=== PATIENT | female | born 1970 | race Two or more races ===

== ENCOUNTER → 2025-05-19 | Outpatient (CLI) | payer BC, SELFPAY ==
[2025-05-19 15:51] LABS: RA Screen Negative (Negative)
[2025-05-25 22:05] LABS: Cardiolipin Ab (IgA) 2.8 APL-U/mL; Cardiolipin Ab (IgG) <2.0 GPL-U/mL; Sjogren's antibody (SS-A) <1.0 NEG AI (<1.0 NEGATIVE); Sm Antibody <1.0 NEG AI (<1.0 NEGATIVE)
[2025-05-26 06:26] LABS: ANA Screen, IFA POSITIVE (NEGATIVE); ANA Titer 1:160 titer; ANA Titer 1:80 titer; Actin Antibody (IgG)* <20 U; B2-Glycoprotein I Ab IgA 2.1 U/mL; B2-Glycoprotein I Ab IgG <2.0 U/mL; B2-Glycoprotein I Ab IgM 17.5 U/mL; CCP Antibody (IgG)* <16 Units; Cardiolipin Ab (IgM) 12.5 MPL-U/mL; Complement Component C3* 157 mg/dL (83-193); Complement Component C4c* 35 mg/dL (15-57); DNA (ds) Antibody* 2 IU/mL; Gastric Parietal Cell Ab* <20.0 U; Mitochondrial Ab NEGATIVE (NEGATIVE); Myocardial Ab, IF NEGATIVE (NEGATIVE); Scl-70 Antibody* <1.0 NEG AI (<1.0 NEGATIVE); Sjogren's Antibody (SS-B) <1.0 NEG AI (<1.0 NEGATIVE); Sm/RNP Antibody <1.0 NEG AI (<1.0 NEGATIVE); Striated Muscle Ab NEGATIVE (NEGATIVE); Thyroglobulin Antibodies* <1 IU/mL (< OR = 1); Thyroid Peroxidase Antibodies* 1 IU/mL (<9)
== END | disposition home or self-care (01) ==
LOC: COPL 07:10
PROVIDERS: PCP Nurse Practitioner Family; Referring Provider Nurse Practitioner Family; Visit Provider Nurse Practitioner Family
DX: R79.82 Elevated C-reactive protein (CRP) (principal); R70.0 Elevated erythrocyte sedimentation rate
CPT/HCPCS: 36415; 83516; 86015; 86038; 86146; 86147; 86160; 86200; 86225; 86235; 86255; 86376; 86430; 86800